=== PATIENT | male | born 1960 | race Caucasian/White ===

== ENCOUNTER 2016-09-09 15:15 | Emergency (ER) | payer OTHER ==
[~2016-09-09] VITALS: Ht 160 cm; Wt 72.7 kg
[~2016-09-09 15:15] MED LIST: ASPI-556 PO; IBUP-2070 PO; LISI5TAB PO; METF500T4 PO; METO-323 PO; NITR0.4T SL; SIMV40TA5 PO
[2016-09-09] MEDS ORDERED: BUSCAPINA PO (15:22)
[2016-09-09 15:32] LABS: BASOPHILS % (AUTO) 0.5 % (0.0-2.0); EOSINOPHILS % (AUTO) 1.5 % (1.0-6.0); HEMATOCRIT 43.2 % (41-53); HEMOGLOBIN 14.2 g/dL (13.5-17.5); LYMPHOCYTES # (AUTO) 2.1 K/uL (1.0-4.8); LYMPHOCYTES % (AUTO) 29.8 % (22.0-44.0); MEAN CORPUSCULAR HEMOGLOBIN 29.7 pg (26.0-34.0); MEAN CORPUSCULAR HGB CONC 32.9 G/dL (31.0-37.0); MEAN CORPUSCULAR VOLUME 90 fL (80-100); MONOCYTES # (AUTO) 0.7 K/uL (0.1-1.0); MONOCYTES % (AUTO) 9.8 % (2.0-9.0); NEUTROPHILS # (AUTO) 4.2 K/uL (1.8-7.7); NEUTROPHILS % (AUTO) 58.4 % (40.0-70.0); PLATELET COUNT (AUTO) 122 K/uL (150-450); RED BLOOD CELL COUNT(AUTO) 4.78 MIL/uL (4.50-5.90); RED CELL DISTRIBUTION WIDTH 12.6 % (11.5-14.5); WHITE BLOOD COUNT (AUTO) 7.2 K/uL (4.5-11.0)
[2016-09-09 15:37] LABS: APPEARANCE,URINE CLEAR (CLEAR); GLUCOSE, URINE (UA) >=1000 mg/dL (NEGATIVE); KETONES,URINE NEGATIVE (NEGATIVE); LEUKOCYTE ESTERASE ,URINE NEGATIVE (NEGATIVE); OCCULT BLOOD,URINE NEGATIVE (NEGATIVE); PROTEIN,URINE NEGATIVE (NEGATIVE)
[2016-09-09 15:51] LABS: ADD UA MICROSCOPIC YES
[2016-09-09 15:59] LABS: RBC,URINE None Seen /HPF (0-2); SQUAMOUS EPITHELIAL CELL,UR Rare /LPF (None Seen); WBC,URINE None Seen /HPF (0-5)
[2016-09-09 16:24] LABS: ANION GAP 10 mmol/L (8-16); CALCIUM, TOTAL 9.1 mg/dL (8.8-10.5); CARBON DIOXIDE 27 mmol/L (22-29); CHLORIDE 103 mmol/L (98-107); CREATININE 0.99 mg/dL (0.60-1.30); GLOMERULAR FILTR. RATE CALC > 60 mL/min (>60); POTASSIUM 4.3 mmol/L (3.5-5.1); SODIUM SERUM 140 mmol/L (136-145); UREA NITROGEN, BLOOD 11 mg/dL (7-18)
[2016-09-09 16:28] LABS: ALANINE AMINOTRANSFERASE 45 U/L (12-78); ALBUMIN 4.2 g/dL (3.4-5.0); ASPARTATE AMINOTRANSFERASE 18 U/L (15-37); BILIRUBIN,TOTAL 0.4 mg/dL (0.1-1.0); TOTAL PROTEIN, SERUM 7.5 g/dL (6.4-8.2)
[2016-09-09 18:31] VITALS: BP 133/82
== END 2016-09-09 19:25 | disposition home or self-care (01) ==
LOC: EMS 15:18
DX: K29.70 Gastritis, unspecified, without bleeding (principal); E11.65 Type 2 diabetes mellitus with hyperglycemia; I10 Essential (primary) hypertension; Z79.82 Long term (current) use of aspirin; Z79.899 Other long term (current) drug therapy
CPT/HCPCS: 76700; 82962; 93005; 99285

== ENCOUNTER 2018-04-20 18:43 | Emergency (ER) | payer OTHER ==
[~2018-04-20] VITALS: Ht 157.5 cm; Wt 72.3 kg
[~2018-04-20 18:43] MED LIST changes: +BUSCAPINA PO; -IBUP-2070 PO; +METF-444 PO; -METF500T4 PO; -METO-323 PO; +METO-408 PO
[2018-04-20 19:28] LABS: GLUCOSE,POINT OF CARE 288 MG/DL (70-110)
[2018-04-20 20:07] LABS: BASOPHILS % (AUTO) 0.8 % (0.0-2.0); HEMATOCRIT 42.3 % (41-53); HEMOGLOBIN 14.2 g/dL (13.5-17.5); LYMPHOCYTES # (AUTO) 1.9 K/uL (1.0-4.8); MEAN CORPUSCULAR HEMOGLOBIN 30.5 pg (26.0-34.0); MEAN CORPUSCULAR HGB CONC 33.6 G/dL (31.0-37.0); MEAN CORPUSCULAR VOLUME 91 fL (80-100); MONOCYTES # (AUTO) 0.5 K/uL (0.1-1.0); MONOCYTES % (AUTO) 8.9 % (2.0-9.0); NEUTROPHILS % (AUTO) 53.3 % (40.0-70.0); PLATELET COUNT (AUTO) 134 K/uL (150-450); RED BLOOD CELL COUNT(AUTO) 4.67 MIL/uL (4.50-5.90); RED CELL DISTRIBUTION WIDTH 12.6 % (11.5-14.5)
[2018-04-20 20:13] LABS: APPEARANCE,URINE CLEAR (CLEAR); BILIRUBIN,URINE NEGATIVE (NEGATIVE); GLUCOSE, URINE (UA) >=1000 mg/dL (NEGATIVE); KETONES,URINE TRACE mg/dL (NEGATIVE); LEUKOCYTE ESTERASE ,URINE NEGATIVE (NEGATIVE); NITRATE,URINE NEGATIVE (NEGATIVE); OCCULT BLOOD,URINE NEGATIVE (NEGATIVE); PROTEIN,URINE NEGATIVE (NEGATIVE); UROBILINOGEN,URINE 0.2 mg/dL (<=1.0)
[2018-04-20 20:18] LABS: ANION GAP 11 mmol/L (8-16); CALCIUM, TOTAL 8.9 mg/dL (8.8-10.5); CARBON DIOXIDE 27 mmol/L (22-29); CHLORIDE 98 mmol/L (98-107); CREATININE 0.87 mg/dL (0.60-1.30); GLOMERULAR FILTR. RATE CALC > 60 mL/min (>60); GLUCOSE,RANDOM 298 mg/dL (70-110); POTASSIUM 3.8 mmol/L (3.5-5.1); SODIUM SERUM 136 mmol/L (136-145); UREA NITROGEN, BLOOD 13 mg/dL (7-18)
[2018-04-20 20:22] LABS: BACTERIA,URINE None Seen /HPF (None Seen); RBC,URINE 0-2 /HPF (0-2); SQUAMOUS EPITHELIAL CELL,UR Few /LPF (None Seen); WBC,URINE 0-2 /HPF (0-5)
[2018-04-20 20:24] LABS: ALANINE AMINOTRANSFERASE 41 U/L (12-78); ALBUMIN 3.9 g/dL (3.4-5.0); ALKALINE PHOSPHATASE 78 U/L (46-116); ASPARTATE AMINOTRANSFERASE 16 U/L (15-37); BILIRUBIN,TOTAL 0.2 mg/dL (0.1-1.0); LIPASE 284 U/L (73-393); TOTAL PROTEIN, SERUM 7.1 g/dL (6.4-8.2)
[2018-04-20] MEDS ORDERED: IOVERSOL 320 MG/ML 100 ML VIAL ONE (21:34)
[2018-04-20] MEDS ORDERED: KETOROLAC TROMETHAMINE 30 MG/ML VIAL IVP ONE (21:45)
[2018-04-21 02:09] VITALS: BP 159/84
== END 2018-04-21 02:21 | disposition home or self-care (01) ==
LOC: EMS 18:44
DX: K80.20 Calculus of gallbladder without cholecystitis without obstruction (principal); R91.1 Solitary pulmonary nodule; R81 Glycosuria; I25.10 Atherosclerotic heart disease of native coronary artery without angina pectoris; E11.9 Type 2 diabetes mellitus without complications; K21.9 Gastro-esophageal reflux disease without esophagitis; I10 Essential (primary) hypertension; E78.00 Pure hypercholesterolemia, unspecified; Z79.82 Long term (current) use of aspirin; Z79.899 Other long term (current) drug therapy; Z79.84 Long term (current) use of oral hypoglycemic drugs
CPT/HCPCS: 36415; 74177; 76700; 80053; 81001; 82962; 83690; 84484; 85025; 93005; 96374; 99284; J1885; Q9967

== ENCOUNTER 2024-03-15 07:12 | Emergency (ER) | payer MEDICARE, OTHER ==
[~2024-03-15] VITALS: Ht 160 cm; Wt 160.0 kg
[2024-03-15 07:44] VITALS: TEMP 98.6
[2024-03-15 07:57] LABS: COVID AG,FIA SOURCE NASAL SWAB
[2024-03-15 08:22] LABS: SARS-COV2 (COVID) ANTIGEN,FIA Negative (Negative)
[2024-03-15] MEDS ORDERED: BENZ-227 PO (08:39)
[2024-03-15 09:08] LABS: INFLUENZA TYPE A NEGATIVE FOR TYPE A (NEGATIVE); INFLUENZA TYPE B NEGATIVE FOR TYPE B (NEGATIVE)
[2024-03-15 09:49] VITALS: BP 128/74; PULSE 88; RESP 16; O2SAT 98
== END 2024-03-15 11:05 | disposition home or self-care (01) ==
LOC: EMS 07:14
DX: J06.9 Acute upper respiratory infection, unspecified (principal); B97.89 Other viral agents as the cause of diseases classified elsewhere; E11.9 Type 2 diabetes mellitus without complications; E78.00 Pure hypercholesterolemia, unspecified; I10 Essential (primary) hypertension; I25.10 Atherosclerotic heart disease of native coronary artery without angina pectoris; K21.9 Gastro-esophageal reflux disease without esophagitis; Z71.6 Tobacco abuse counseling; Z20.822 Contact with and (suspected) exposure to COVID-19
CPT/HCPCS: 87804; 99283

== ENCOUNTER 2024-12-13 20:00 | Inpatient (IN) | payer MEDICARE, OTHER ==
[~2024-12-13] VITALS: Ht 162.6 cm; Wt 78.0 kg
[~2024-12-13 20:00] MED LIST changes: -ASPI-556 PO; +BENZ-227 PO; -BUSCAPINA PO; -LISI5TAB PO; -METF-444 PO; -METO-408 PO; -NITR0.4T SL; -SIMV40TA5 PO
[2024-12-13 20:52] LABS: PLATELET COUNT (AUTO) 127 K/uL (150-450); RED BLOOD CELL COUNT(AUTO) 5.02 MIL/uL (4.50-5.90); RED CELL DISTRIBUTION WIDTH 13.1 % (11.5-14.5); WHITE BLOOD COUNT (AUTO) 7.5 K/uL (4.5-11.0)
[2024-12-13 21:02] LABS: CALCIUM, TOTAL 9.2 mg/dL (8.8-10.5); CREATININE 0.92 mg/dL (0.60-1.30); GLOMERULAR FILTR. RATE CALC > 60 mL/min (>60); GLUCOSE,RANDOM 375 mg/dL (70-110); SODIUM SERUM 138 mmol/L (136-145); UREA NITROGEN, BLOOD 19 mg/dL (7-18)
[2024-12-13 21:11] LABS: TROPONIN I-HIGH SENSITIVITY 4 ng/L (<76)
[2024-12-13 22:46] LABS: CREATINE KINASE, TOTAL ONLY 62 U/L (39-308)
[2024-12-13 23:08] LABS: APPEARANCE,URINE CLEAR (CLEAR); GLUCOSE, URINE (UA) >=1000 mg/dL (NEGATIVE); LEUKOCYTE ESTERASE ,URINE NEGATIVE (NEGATIVE); NITRATE,URINE NEGATIVE (NEGATIVE); OCCULT BLOOD,URINE NEGATIVE (NEGATIVE); SPECIFIC GRAVITIY, URINE 1.034 (1.003-1.030)
[2024-12-13 23:09] LABS: PH,URINE DRUG SCREEN 5.0 (5.0-8.0)
[2024-12-13 23:11] LABS: SQUAMOUS EPITHELIAL CELL,UR Rare /LPF (None Seen)
[2024-12-13 23:16] LABS: ALCOHOL, URINE DRUG SCREEN NEGATIVE (NEGATIVE); AMPHET/METH SCREEN,URINE NEGATIVE (NEGATIVE); BARBITURATE SCREEN, URINE NEGATIVE (NEGATIVE); CANNABINOID SCREEN,URINE NEGATIVE (NEGATIVE); COCAINE SCREEN,URINE NEGATIVE (NEGATIVE); METHADONE SCREEN, URINE NEGATIVE (NEGATIVE)
[2024-12-13] MEDS ORDERED: DEXTROSE 50%-WATER 25 GM/50 ML SYRINGE IVP PRN (23:45)
[2024-12-13] MEDS ORDERED: MAGNESIUM HYDROXIDE SUSPENSION 30 ML UDCUP PO PRN (23:45)
[2024-12-14] MEDS: HEPARIN SODIUM,PORCINE 5,000 UNITS/ML VIAL SQ SCH
[2024-12-14] MEDS: MORPHINE SULFATE 2 MG/ML SYRINGE IVP ONE
[2024-12-14] MEDS: SODIUM CHLORIDE 0.9% 1,000 ML IV ONE (00:15)
[2024-12-14] MEDS: INSULIN GLARGINE,HUM.REC.ANLOG 100 UNITS/ML SQ SCH ×2 (00:58→20:10)
[2024-12-14 05:12] VITALS: BP 146/73; PULSE 70; RESP 18; TEMP 98; O2SAT 96
[2024-12-14] MEDS: ACETAMINOPHEN 325 MG TABLET PO PRN (05:47)
[2024-12-14 06:21] LABS: GLUCOMETER DEV NAME(LOC) 5N.1D; GLUCOSE,POINT OF CARE 228 MG/DL (70-110)
[2024-12-14] MEDS: INSULIN LISPRO 100 UNITS/ML SQ PRN (07:07)
[2024-12-14 07:53] VITALS: BP 137/69; PULSE 70; RESP 16; TEMP 97.7; O2SAT 98
[2024-12-14] MEDS: FAMOTIDINE 20 MG TABLET PO SCH (08:30)
[2024-12-14 11:10] VITALS: BP 125/69; PULSE 68; RESP 16; TEMP 97.7; O2SAT 99
[2024-12-14] MEDS: ASPIRIN 81 MG CHEWABLE TABLET PO SCH (12:59)
[2024-12-14] MEDS: ATORVASTATIN CALCIUM 20 MG TABLET PO SCH (12:59)
[2024-12-14] MEDS: INSULIN GLARGINE,HUM.REC.ANLOG 100 UNITS/ML SQ ONE (13:01)
[2024-12-14 13:10] LABS: GLUCOMETER DEV NAME(LOC) 5N.2C; GLUCOSE,POINT OF CARE 208 MG/DL (70-110)
[2024-12-14 15:26] VITALS: BP 132/65; PULSE 70; RESP 16; TEMP 98.4; O2SAT 97
[2024-12-14 20:30] VITALS: BP 143/66; PULSE 82; RESP 16; TEMP 97.5; O2SAT 96
[2024-12-15 00:16] LABS: GLUCOMETER DEV NAME(LOC) 5S.1E; GLUCOSE,POINT OF CARE 319 MG/DL (70-110)
[2024-12-15 00:54] VITALS: BP 129/61; PULSE 74; RESP 16; TEMP 97.7; O2SAT 97
[2024-12-15 04:13] VITALS: BP 143/83; PULSE 71; RESP 15; TEMP 97.9; O2SAT 97
[2024-12-15 08:23] LABS: PLATELET COUNT (AUTO) 131 K/uL (150-450); RED BLOOD CELL COUNT(AUTO) 4.94 MIL/uL (4.50-5.90); RED CELL DISTRIBUTION WIDTH 12.6 % (11.5-14.5); WHITE BLOOD COUNT (AUTO) 6.6 K/uL (4.5-11.0)
[2024-12-15 08:28] VITALS: BP 139/78; PULSE 61; RESP 17; TEMP 98.2; O2SAT 99
[2024-12-15 08:32] LABS: CALCIUM, TOTAL 8.4 mg/dL (8.8-10.5); CREATININE 0.48 mg/dL (0.60-1.30); GLOMERULAR FILTR. RATE CALC > 60 mL/min (>60); GLUCOSE,RANDOM 164 mg/dL (70-110); SODIUM SERUM 140 mmol/L (136-145); UREA NITROGEN, BLOOD 9 mg/dL (7-18)
[2024-12-15 09:58] LABS: PLATELET MORPHOLOGY COMMENT GIANT PLTS PRESENT
[2024-12-15 11:45] VITALS: BP 147/81; PULSE 73; RESP 18; TEMP 98; O2SAT 98
[2024-12-15 15:50] VITALS: BP 125/71; PULSE 77; RESP 19; TEMP 98.1; O2SAT 99
[2024-12-15] MEDS ORDERED: INSU3INS3 SQ (18:12)
[2024-12-15] MEDS ORDERED: ASPI-1450 PO (18:12)
[2024-12-15] MEDS ORDERED: ATOR20TA65 PO (18:12)
[2024-12-15] MEDS ORDERED: NEED-462 SQ (18:12)
[2024-12-15] MEDS ORDERED: PRED-549 PO (18:21)
[2024-12-15] MEDS ORDERED: PRED-554 PO (18:21)
[2024-12-15 20:50] LABS: GLUCOMETER DEV NAME(LOC) 5S.2E; GLUCOSE,POINT OF CARE 189 MG/DL (70-110)
[2024-12-15 22:56] LABS: GLUCOMETER DEV NAME(LOC) 5N.1D; GLUCOSE,POINT OF CARE 146 MG/DL (70-110)
[2024-12-15 22:56] LABS: GLUCOMETER DEV NAME(LOC) 5N.1D; GLUCOSE,POINT OF CARE 226 MG/DL (70-110)
[2024-12-15 23:46] LABS: GLUCOMETER DEV NAME(LOC) 5S.1E; GLUCOSE,POINT OF CARE 174 MG/DL (70-110)
== END 2024-12-15 18:55 | disposition home or self-care (01) | DRG 641 ==
LOC: EMS 20:11 → EDH 23:40 → 5N 12-14 05:11
PROVIDERS: ADMIT Internal Medicine; ATTEND Internal Medicine
DX: E86.0 Dehydration (principal); G51.0 Bell's palsy; E11.65 Type 2 diabetes mellitus with hyperglycemia; I25.10 Atherosclerotic heart disease of native coronary artery without angina pectoris; I10 Essential (primary) hypertension; K21.9 Gastro-esophageal reflux disease without esophagitis; E78.00 Pure hypercholesterolemia, unspecified; Z79.4 Long term (current) use of insulin; Z83.3 Family history of diabetes mellitus
CPT/HCPCS: 70450; 70551; 71045; 80048; 80307; 81001; 82550; 82962; 83036; 83880; 84484; 85025; 85610; 85730; 93005; 93880; 97116; 97163; 97530; 99285; G0378; G0480; J1644; J1815; J2270; 36415-L1; 36415-TC